=== PATIENT | female | born 1955 | race Caucasian/White ===

== ENCOUNTER 2024-01-03 13:25 | Outpatient (CLI) | payer MEDICARE, OTHER, SELFPAY ==
--- NOTE | ~2024-01-03 | XR_ITS ---
XR knee LT 3V Ordering provider: Susan Correia PA-C History: . M25.562 - Pain in left knee . Comparison: December 09, 2023 FINDINGS: BONES: No acute fracture or dislocation. JOINT SPACES: Narrowing of the medial compartment. SOFT TISSUES: Normal. IMPRESSION: No acute osseous abnormality left knee. Mild to moderate osteoarthritic changes. Reviewed, dictated and finalized at location A.
== END 2024-01-03 13:26 | disposition home or self-care (01) ==
PROVIDERS: PCP Physician Assistant Medical; Visit Provider Physician Assistant Medical
DX: M17.12 Unilateral primary osteoarthritis, left knee (principal)
CPT/HCPCS: 73562

== ENCOUNTER 2024-01-19 09:37 | Outpatient (CLI) | payer MEDICARE, OTHER, SELFPAY ==
--- NOTE | ~2024-01-19 | MR_ITS ---
EXAMINATION: MR knee LT wo con DATE: 01/19/2024 10:17 INDICATION: M25.562 - Pain in left knee TECHNIQUE: Magnetic resonance imaging (MRI) of the left knee was performed without intravenous contra st. Sequences included axial PD-weighted FS FSE, coronal PD-weighted FSE and PD-weighted FS FSE, sagi ttal PD-weighted FSE, and sagittal T2-weighted FS FSE. COMPARISON: X-ray left knee 01/03/2024 FINDINGS: Medial compartment: Meniscus intact. Moderate diffuse cartilage thinning. Mild osteophytosis. Lateral compartment: Oblique tear in the junction of the anterior horn and body of the lateral meniscus (coronal image 12/ 27), extending to the articular surface. Mild diffuse cartilage thinning. Patellofemoral compartment: Severe diffuse cartilage thinning. Retinacula intact. Ligaments and tendons: The ACL, PCL, MCL, and LCL are intact. Remaining flexor and extensor tendons are intact. Fluid: No significant fluid collection. Osseous/other: No suspicious focal or diffuse marrow signal. IMPRESSION: Oblique tear of the lateral meniscus at the junction of the anterior horn and body. Tricompartmental cartilage thinning, severe in the patellofemoral compartment. Reviewed, dictated and finalized at location K. IMPRESSION: Oblique tear of the lateral meniscus at the junction of the anterior horn and b kelsey. Tricompartmental cartilage thinning, severe in the patellofemoral compartment.
== END 2024-01-19 09:38 | disposition home or self-care (01) ==
LOC: MICIMG 09:38
PROVIDERS: PCP Physician Assistant Medical; Visit Provider Physician Assistant Medical
DX: M25.562 Pain in left knee (principal); S83.282A Other tear of lateral meniscus, current injury, left knee, initial encounter; M94.8X8 Other specified disorders of cartilage, other site
CPT/HCPCS: 73721

== ENCOUNTER 2024-05-04 00:45 | Day surgery (SDC) | payer MEDICARE, OTHER, SELFPAY ==
[2024-04-16 14:27] VITALS: BMI 36.0
[2024-05-04 08:10] VITALS: BP 163/82; PULSE 104; RESP 18; TEMP 36.1; O2SAT 100
[2024-05-04] MEDS: LACTATED RINGERS 1,000 ML 150 ML IV CONT (08:18)
--- NOTE | 2024-05-04 08:58 | WPDANESEPPF ---
Anes - Initial Pre Proc Eval Procedure: Operation Date: 05/04/24 09:00 Proposed Procedures p Screening Colonoscopy - Mckay Leon MD Date/Time: 05/04/24 08:58 Surgeon: Mckay Leon MD Pre Op Diagnosis: screening colon Patient Data Age: 68 Gender: F Height: 1.5 m Weight: 82.2 kg Last Vital Signs Temp 97 F L 05/04/24 08:10 Pulse 104 H 05/04/24 08:10 Resp 18 05/04/24 08:10 BP 163/82 H 05/04/24 08:10 Pulse Ox 100 05/04/24 08:10 O2 Del Method Room Air 05/04/24 08:10 Allergies Allergy/AdvReac Type Severity Reaction Status Date / Time shellfish derived Allergy Severe Vomiting Verified 05/04/24 08:07 thimerosal Allergy Unknown Rash Verified 05/04/24 08:07 watermelon Allergy Unknown Rash Verified 05/04/24 08:07 LINCOLSIN Allergy Severe REDNESS Uncoded 05/04/24 08:07 AND SWELLING BEE Allergy Unknown Swelling Uncoded 05/04/24 08:07 Wasp Allergy Unknown Swelling Uncoded 05/04/24 08:07 Home Medications ?Medication ?Instructions ?Recorded ?Confirmed ?Type cholecalciferol (vitamin D3) 25 25 mcg PO DAILY 04/06/22 05/04/24 History mcg (1,000 unit) capsule cyanocobalamin (vitamin B-12) 1,000 mcg PO DAILY 04/06/22 05/04/24 History 1,000 mcg capsule Lactobacillus rhamnosus-Bifidobac. 1 cap PO DAILY 01/18/23 05/04/24 History animalis 3 billion cell capsule ([employer]) meloxicam 15 mg tablet 15 mg PO DAILY #90 tabs 10/07/23 05/04/24 Rx levothyroxine 125 mcg tablet 125 mcg PO DAILY 04/16/24 05/04/24 History tramadol 50 mg tablet 50 mg PO TID PRN pain #60 tabs 04/16/24 05/04/24 Rx Patient hx anesthesia problems: none Family hx anesthesia problems: none Results Review: All pre-operative results and documents have been reviewed as part of the pre-operative evaluation. [facility] Past Medical History Medical History Vitamin B 12 deficiency Vitamin D deficiency Hypothyroid Arthritis Surgical History Surgical History History of bilateral cataract extraction History of bunionectomy History of appendectomy Tubal ligation status Family History Family History Father Colon cancer Diabetes mellitus Mother Diabetes mellitus Hypertension Acute myocardial infarction Sibling Diabetes mellitus Hypertension COPD (chronic obstructive pulmonary disease) Thyroid disease Heart disease Acute myocardial infarction Social History Social History Social History: 04/23/24 very confident with medical forms Smoking packs per day: 1 Smoking cigarettes per day: 20.0 Years smoked: 20 Smoking pack-years: 20.00 Smoking status: Former smoker Tobacco type: cigarettes Alcohol intake: never Substance use: never Substance use type: does not use Do You Feel Safe in your Home?: Yes Lack of Transportation: No Lack of Food: Never True Current Housing: I Have Housing Concerned About Future Housing: No Difficulty Paying Gas/Electric Bills: No Difficulty Paying for Meds: No Currently Unemployed: No Education: Trade/Vocational Certificate Difficulty w/ Childcare or Family Care: No Living arrangements: alone Gender identity (if verbalized by the patient): Female Anes - Eval Final PreProcedure Day of Procedure 05/04/24 08:58 Patient weight: obese Heart: regular rate and rhythm Lungs: clear to auscultation Airway: Mallampati scale class II Neurological: alert and oriented Last oral intake: >/= 8 hours ASA classification: II Emergent: no Anesthetic plan: proceed Anesthesia type and monitoring: general GIVS and standard monitoring Results Review: All pre-operative results and documents have been reviewed as part of the pre-operative evaluation. Informed Consent: The patient's anesthetic plan and its attendant risks and benefits were discussed with the patient/family/POA. Questions were solicited and answers provided to the satisfaction of the patient/family/POA.
--- NOTE | 2024-05-04 09:04 | PM.HPGS ---
History of Present Illness History of Present Illness Consent: Risks, benefits, and alternatives have been discussed and questions answered. Patient agrees to proceed with procedure. Chief complaint: screening colon Narrative: Suzanne Gross is a 68 year old female with colon polyp 6 years ago Review of Systems Review of Systems: All systems reviewed & are unremarkable except as noted in HPI and below PMFSH Past Medical History Medical History (Updated 05/04/24 @ 09:05 by Mckay Leon MD) Colon polyp Vitamin B 12 deficiency Vitamin D deficiency Hypothyroid Arthritis Surgical History Surgical History (Reviewed 04/23/24 @ 15:25 by Annabella Altamirano [facility]) History of bilateral cataract extraction History of bunionectomy History of appendectomy Tubal ligation status Family History Family History Father Colon cancer Diabetes mellitus Mother Diabetes mellitus Hypertension Acute myocardial infarction Sibling Diabetes mellitus Hypertension COPD (chronic obstructive pulmonary disease) Thyroid disease Heart disease Acute myocardial infarction Social History Social History (Reviewed 04/23/24 @ 15:25 by Annabella Altamirano [facility]) Social History: 04/23/24 very confident with medical forms Smoking packs per day: 1 Smoking cigarettes per day: 20.0 Years smoked: 20 Smoking pack-years: 20.00 Smoking status: Former smoker Tobacco type: cigarettes Alcohol intake: never Substance use: never Substance use type: does not use Do You Feel Safe in your Home?: Yes Lack of Transportation: No Lack of Food: Never True Current Housing: I Have Housing Concerned About Future Housing: No Difficulty Paying Gas/Electric Bills: No Difficulty Paying for Meds: No Currently Unemployed: No Education: Trade/Vocational Certificate Difficulty w/ Childcare or Family Care: No Living arrangements: alone Gender identity (if verbalized by the patient): Female Meds Home Medications and Allergies Home Medications ?Medication ?Instructions ?Recorded ?Confirmed ?Type cholecalciferol (vitamin D3) 25 25 mcg PO DAILY 04/06/22 05/04/24 History mcg (1,000 unit) capsule cyanocobalamin (vitamin B-12) 1,000 mcg PO DAILY 04/06/22 05/04/24 History 1,000 mcg capsule Lactobacillus rhamnosus-Bifidobac. 1 cap PO DAILY 01/18/23 05/04/24 History animalis 3 billion cell capsule ([employer]) meloxicam 15 mg tablet 15 mg PO DAILY #90 tabs 10/07/23 05/04/24 Rx levothyroxine 125 mcg tablet 125 mcg PO DAILY 04/16/24 05/04/24 History tramadol 50 mg tablet 50 mg PO TID PRN pain #60 tabs 04/16/24 05/04/24 Rx Allergies Allergy/AdvReac Type Severity Reaction Status Date / Time shellfish derived Allergy Severe Vomiting Verified 05/04/24 08:07 thimerosal Allergy Unknown Rash Verified 05/04/24 08:07 watermelon Allergy Unknown Rash Verified 05/04/24 08:07 LINCOLSIN Allergy Severe REDNESS Uncoded 05/04/24 08:07 AND SWELLING BEE Allergy Unknown Swelling Uncoded 05/04/24 08:07 Wasp Allergy Unknown Swelling Uncoded 05/04/24 08:07 Vital Signs Vital Signs - 24 hr 05/04/24 08:10 Temperature 97 F L Pulse Rate 104 H Respiratory Rate 18 Blood Pressure 163/82 H Pulse Oximetry 100 Oxygen Delivery Room Air Exam Const: General: comfortable and no acute distress HENMT: Face/Nose/Sinus: Normal nares present Eyes: General: appearance normal, both eyes and all related structures Neck: Neck: no JVD Resp: Auscultation: clear to auscultation bilaterally Cardio: Rate: regular rate Rhythm: regular rhythm GI: Inspection: non-distended GI Palp: Yes Soft to palpation Skin: General skin exam: normal color Neuro: General: gait normal Speech: normal speech Extrem: General: normal to inspection Psych: Mental Status: mental status grossly normal Assessment and Plan Assessment and plan (1) Colon polyp: Code(s): K63.5 - Polyp of colon Status: Acute Assessment and Plan: colonoscopy
[2024-05-04 09:15] VITALS: BP 114/79; PULSE 74; RESP 18; O2SAT 98
[2024-05-04 09:25] VITALS: BP 123/67; PULSE 82; RESP 19; O2SAT 100
[2024-05-04 09:35] VITALS: BP 153/84; PULSE 78; RESP 21; O2SAT 100
== END 2024-05-04 09:45 | disposition home or self-care (01) ==
PROVIDERS: PCP Physician Assistant Medical; Visit Provider Internal Medicine Gastroenterology
PROC: 0DJD8ZZ Inspection of Lower Intestinal Tract, Via Natural or Artificial Opening Endoscopic (ICD-10-PCS; CPT 45378; principal; 2024-05-04 09:00)
DX: Z12.11 Encounter for screening for malignant neoplasm of colon (principal); K63.5 Polyp of colon; K64.8 Other hemorrhoids; K57.30 Diverticulosis of large intestine without perforation or abscess without bleeding; E03.9 Hypothyroidism, unspecified; E53.8 Deficiency of other specified B group vitamins; E55.9 Vitamin D deficiency, unspecified; M19.90 Unspecified osteoarthritis, unspecified site; E66.9 Obesity, unspecified; Z68.36 Body mass index [BMI] 36.0-36.9, adult; Z79.891 Long term (current) use of opiate analgesic; Z98.890 Other specified postprocedural states; Z98.51 Tubal ligation status; Z87.891 Personal history of nicotine dependence; Z80.0 Family history of malignant neoplasm of digestive organs; Z82.49 Family history of ischemic heart disease and other diseases of the circulatory system
CPT/HCPCS: 45385; 88305; J2704; J7120

== ENCOUNTER 2024-05-08 13:15 | Outpatient (RCR) | payer MEDICARE, OTHER, SELFPAY ==
--- NOTE | 2024-02-09 15:25 | PTOPEVAL1 ---
Assessment and note entered by Unique Oliver, PT Evaluation Information Assessment Status Evaluation Onset November 2023 Subjective Information Pt had a fall last November while going up the concrete steps after walking the dog. She landed on her L knee, had X-rays that showed mild degenerative disease, hip started hurting due to walking weird had xray on it which showed bursitis, received oral steroid and steroid injection which helped reduce the pain. However pain continue to persist and so she got MRI. Pain is worse when getting up in the morning, worse going up/down the steps, walking for longer distance. Ice, rest and tramadol 3x/day and tylenol in between to relieve pain. Reported Pain Level Pain Score 3: Self Report Assessment PT Clinical Summary Pt is a 68 yo female who presents to therapy with increased L knee pain that started after a fall last 11/2023. X-rays revealed Mild to moderate osteoarthritic changes, MRI showed Plan of Care Interventions Check Out for Orthotic/Pr,Electrical Stimulation, Gait Training,Hot Pack/Cold Pack,Intermittent Compression,Manual Therapy,Neuro Re-education, Patient/Caregiver Education,Therapeutic Activities, Therapeutic Exercise,Ultrasound,Other Other Interventions IASTM, Taping PT Services Indicated Yes Treatment Frequency and 2x/wk x 12 visits Duration These treatments will address the objective and functional deficits as defined above. The patient will be advanced safely and appropriately in order for the patient to progress towards his/her prior level of function. Additional exercises will be introduced and as well as a comprehensive home exercise program upon discharge, if needed, ?to ensure carryover of functional gains achieved in the clinic. This treatment plan has been reviewed and agreement upon by the patient.
--- NOTE | 2024-02-09 15:25 | OPREHPOC ---
Outpatient Therapy Plan of Care This is a Multidisciplinary Plan of Care that may contain components documented by all disciplines (PT, OT, and ST.) PT Problem 1 PT Problem #1 Knowledge Deficit PT Goal 1 Goal / Goal Update Pt will demo good understanding of diagnosis and prognosis. Pt will perform BLE hip and knee stabilization and strengthening exercises, flexibility and balance exercises indep. Target Visit 10 PT Problem 2 PT Problem #2 Pain PT Goal 1 Goal / Goal Update Pt will report 2-3/10 pain level at worst leslye when standing or walking for a period of time. Target Visit 12 PT Problem 3 PT Problem #3 Impaired Range of Motion PT Goal 1 Goal / Goal Update Pt will demo WNL ROM of L hip and knee to improve functional mobility without pain and discomfort. Target Visit 12 PT Problem 4 PT Problem #4 Impaired Gait PT Goal 1 Goal / Goal Update Pt will demo improved knee hip and knee flexion during swing phase and improved DF during heel strike to allow improved gait pattern with least restrictive AD. Target Visit 6 PT Goal 2 Goal / Goal Update Pt will demo normalized gait pattern indep without AD. Target Visit 12
--- NOTE | 2024-03-20 09:46 | PTOPPROG ---
Assessment and note entered by Unique Oliver, PT Re-Eval Information Assessment Status Progress Diagnosis M25.562, S83.282A ICD-10 Condition Codes (PT) Pain in left hip M25.552,Pain in left knee M25.562 ,Difficulty Walking R26.2,R26.9,Weakness R53.1 Onset November 2023 Subjective Information Pt reports knee is feeling much better, however hip has recently been bothering her more which influences her knee pain. states feels insecure walking without a cane. Assessment PT Clinical Summary Pt received a total of 9 treatment sessions and demos gains in mobility and significantly reduced levels of pain which allows her to tolerate more exercises. She presents with increased standing tolerance, WNL of L knee ROM and improved strength . She has partially met her goals at this time, however she recently noticed a flare up of hip pain. She will benefit from skilled PT to address remaining deficits, further improve strength and stability and balance to allow her to improve performance of functional mobility and household and community ambulation independently without AD and without discomfort. Plan of Care Interventions Check Out for Orthotic/Pr,Electrical Stimulation, Gait Training,Hot Pack/Cold Pack,Intermittent Compression,Manual Therapy,Neuro Re-education, Patient/Caregiver Education,Therapeutic Activities, Therapeutic Exercise,Ultrasound,Other Other Interventions IASTM, Taping PT Services Indicated Yes Treatment Frequency and 2x/wk x 12 weeks Duration These treatments will address the objective and functional deficits as defined above. The patient will be advanced safely and appropriately in order for the patient to progress towards his/her prior level of function. Additional exercises will be introduced and as well as a comprehensive home exercise program upon discharge, if needed, ?to ensure carryover of functional gains achieved in the clinic. This treatment plan has been reviewed and agreement upon by the patient.
--- NOTE | 2024-03-20 09:46 | OPREHPOC ---
Outpatient Therapy Plan of Care This is a Multidisciplinary Plan of Care that may contain components documented by all disciplines (PT, OT, and ST.) PT Problem 1 PT Problem #1 Knowledge Deficit PT Goal 1 Goal / Goal Update Pt will demo good understanding of diagnosis and prognosis. Pt will perform BLE hip and knee stabilization and strengthening exercises, flexibility and balance exercises indep. -pt mainly focusing on flexibility and ROM exercises at this time Target Visit 10 Progress Partially Met PT Goal 2 Goal / Goal Update continue with this goal, with emphasis on increasing strength and stabilization Target Visit 12 PT Problem 2 PT Problem #2 Pain PT Goal 1 Goal / Goal Update Pt will report 2-3/10 pain level at worst leslye when standing or walking for a period of time. -cont to feel 7/10 greatest pain at this time Target Visit 12 Progress Partially Met PT Problem 3 PT Problem #3 Impaired Range of Motion PT Goal 1 Goal / Goal Update Pt will demo WNL ROM of L hip and knee to improve functional mobility without pain and discomfort. Target Visit 12 Progress Partially Met PT Goal 2 Goal / Goal Update pt able to perform WNL ROM with mild facial grimacing and discomfort PT Problem 4 PT Problem #4 Impaired Gait PT Goal 1 Goal / Goal Update Pt will demo improved knee hip and knee flexion during swing phase and improved DF during heel strike to allow improved gait pattern with least restrictive AD. Target Visit 6 Progress Partially Met PT Goal 2 Goal / Goal Update Pt will demo normalized gait pattern indep without AD. Target Visit 12
--- NOTE | 2024-05-07 12:22 | PTOPPROG ---
Assessment and note entered by Unique Oliver, PT Progress Information Assessment Status Progress Diagnosis M25.562, S83.282A ICD-10 Condition Codes (PT) Pain in left hip M25.552,Pain in left knee M25.562 ,Difficulty Walking R26.2,Abnormalities of gait and mobility R26.9,Weakness R53.1 Onset November 2023 Subjective Information Pt reports she had Covid end of March and her knee has been bothering her more, worse with weightbearing and prolonged standing position >10 min. Continue to use the SC. Reports she strongly feels she has gains from participating therapy but she is not where she used to be and wants to continue receiving therapy to achieve her goals. Assessment PT Clinical Summary Pt demos good progress with therapy and has reported significant reduction in pain levels allowing her to tolerate longer standing and ambulation. However, she continues to demo unsteadiness with gait when ambulating without AD and would experience pain after performing weight bearing tasks and moving hip in FADIR and FEBER positions. She would benefit from skilled PT to continue with mobility training, manual therapy, strengthening and stability exercises to achieve established LTGs. Plan of Care Interventions Check Out for Orthotic/Prosthetic,Electrical Stimulation,Gait Training,Hot Pack/Cold Pack, Intermittent Compression Pump,Manual Therapy,Neuro Re-education,Patient/Caregiver Education, Therapeutic Activities,Therapeutic Exercise, Ultrasound,Other Other Interventions IASTM, Taping PT Services Indicated Yes Treatment Frequency and 2x/wk x 10 visits Duration These treatments will address the objective and functional deficits as defined above. The patient will be advanced safely and appropriately in order for the patient to progress towards his/her prior level of function. Additional exercises will be introduced and as well as a comprehensive home exercise program upon discharge, if needed, ?to ensure carryover of functional gains achieved in the clinic. This treatment plan has been reviewed and agreement upon by the patient.
== END 2024-05-09 23:59 | disposition home or self-care (01) ==
LOC: ANHHIPT 13:15
PROVIDERS: PCP Physician Assistant Medical; Visit Provider Physician Assistant Medical
DX: M25.562 Pain in left knee (principal); S83.282A Other tear of lateral meniscus, current injury, left knee, initial encounter
CPT/HCPCS: 97012; 97014; 97016; 97032; 97035; 97110; 97112; 97116; 97140; 97161; 97530; 97750; G0283

== ENCOUNTER 2024-06-28 13:15 | Outpatient (RCR) | payer MEDICARE, OTHER, SELFPAY ==
--- NOTE | 2024-05-25 16:26 | PTOPPROG ---
Assessment and note entered by Unique Oliver, PT Progress Information Assessment Status Progress Diagnosis M25.562, S83.282A ICD-10 Condition Codes (PT) Pain in left hip M25.552,Pain in left knee M25.562 ,Difficulty Walking R26.2,Abnormalities of gait and mobility R26.9,Weakness R53.1 Onset November 2023 Subjective Information Pt reports she had Covid end of March and her knee has been bothering her more, worse with weightbearing and prolonged standing position >10 min. Continue to use the SC. Reports she strongly feels she has gains from participating therapy but she is not where she used to be and wants to continue receiving therapy to achieve her goals. Assessment PT Clinical Summary Pt cheyanneos excellent progress with therapy, has met most of her established goals and has improved gait mechanics without AD. However, pt demos difficulty recovering from the floor and reports cont to feel instability to BLEs when walking on uneven surfaces. She will benefit from skilled PT to continue working towards improving strength and stability, endurance, balance and gait mechanics and improve floor recovery abilities. Plan of Care Interventions Check Out for Orthotic/Prosthetic,Electrical Stimulation,Gait Training,Hot Pack/Cold Pack, Intermittent Compression Pump,Manual Therapy,Neuro Re-education,Patient/Caregiver Education, Therapeutic Activities,Therapeutic Exercise, Ultrasound,Other Other Interventions IASTM, Taping PT Services Indicated Yes Treatment Frequency and 1-2x/wk x 10 visits Duration These treatments will address the objective and functional deficits as defined above. The patient will be advanced safely and appropriately in order for the patient to progress towards his/her prior level of function. Additional exercises will be introduced and as well as a comprehensive home exercise program upon discharge, if needed, ?to ensure carryover of functional gains achieved in the clinic. This treatment plan has been reviewed and agreement upon by the patient.
--- NOTE | 2024-05-25 16:30 | OPREHPOC ---
Outpatient Therapy Plan of Care This is a Multidisciplinary Plan of Care that may contain components documented by all disciplines (PT, OT, and ST.) PT Problem 1 PT Problem #1 Knowledge Deficit PT Goal 1 Goal / Goal Update Pt will demo good understanding of diagnosis and prognosis. Pt will perform BLE hip and knee stabilization and strengthening exercises, flexibility and balance exercises indep. -pt mainly focusing on flexibility and ROM exercises at this time Target Visit 10 Progress Partially Met PT Goal 2 Goal / Goal Update continue with this goal, with emphasis on increasing strength and stabilization Target Visit 12 PT Problem 2 PT Problem #2 Pain PT Goal 1 Goal / Goal Update Pt will report 2-3/10 pain level at worst leslye when standing or walking for a period of time. Target Visit 12 Progress Met PT Problem 3 PT Problem #3 Impaired Range of Motion PT Goal 1 Goal / Goal Update Pt will demo WNL ROM of L hip and knee to improve functional mobility without pain and discomfort. Target Visit 12 Progress Met PT Goal 2 Goal / Goal Update pt able to perform WNL ROM with mild facial grimacing and discomfort Progress Met PT Problem 4 PT Problem #4 Impaired Gait PT Goal 1 Goal / Goal Update Pt will demo improved knee hip and knee flexion during swing phase and improved DF during heel strike to allow improved gait pattern with least restrictive AD. Target Visit 6 Progress Met PT Goal 2 Goal / Goal Update Pt will demo normalized gait pattern indep without AD on various surfaces (stairs, concrete, uneven levels) Target Visit 10 Progress Partially Met PT Problem 5 PT Problem #5 Impaired Functional Mobility PT Goal 1 Goal / Goal Update 1. Pt will perform SLS without BUE support x 20 sec or more to improve stability with standing and ambulation without BUE support. 2. Pt will demo inchworm technique to recover from floor x 3 reps without pain and discomfort. Target Visit 10
--- NOTE | 2024-05-28 10:10 | PCPTNOTE ---
The treatment documented on this account is a continuation of the treatment documented on visit number [id number]. Please see documentation on both accounts to view progress. The Plan of Care has been transitioned and updated within the new V#. I have addressed and agree with the discipline specific Problems, Interventions, and Goals for the current certification period. Completed interventions, outcomes, and problems have been marked as Inactive to facilitate the copying of the Care plan routine for recurring accounts.
--- NOTE | 2024-06-28 14:43 | PTOPDC ---
Assessment and note entered by Unique Oliver, PT Discharge Information Assessment Status Discharge Diagnosis M25.562, S83.282A ICD-10 Condition Codes (PT) Pain in left hip M25.552,Pain in left knee M25.562 ,Difficulty Walking R26.2,Abnormalities of gait and mobility R26.9,Weakness R53.1 Onset November 2023 Subjective Information Pt reports she felt her L hip and knee is so much better, does not feel stiff or painful. She noticed she is also able to get up and down to clean her birdcage so much easier now. Reported Pain Level Pain Score 0: Self Report Assessment PT Clinical Summary Pt received a total 34 treatment sessions and demos excellent progress with therapy. Showed good progress with ROM, strength and significant reduction in pain and swelling and mobility. Her LEFS score increased to 54% indicating mild disability and significantly improved functional mobility; she has also met all established goals, compliant with HEPs and receptive of all education provided. Skilled PT program discontinued at this time. Plan of Care PT Services Indicated No
== END 2024-06-28 15:11 | disposition home or self-care (01) ==
LOC: ANHHIPT 13:15
PROVIDERS: PCP Physician Assistant Medical; Visit Provider Physician Assistant Medical
DX: M25.562 Pain in left knee (principal); S83.282A Other tear of lateral meniscus, current injury, left knee, initial encounter
CPT/HCPCS: 97014; 97016; 97035; 97110; 97112; 97116; 97140; 97530; 97750; G0283